=== PATIENT | female | born 1970 | race African-American/Black ===

== ENCOUNTER 2018-12-13 18:26 | Emergency (ER) | payer SELFPAY ==
[~2018-12-13] VITALS: Ht 165.1 cm; Wt 86.0 kg
[~2018-12-13 18:26] MED LIST: CYCL5TAB PO; HCTZ
[2018-12-13] MEDS ORDERED: DIPHENHYDRAMINE 25MG CAPSULE PO ONE (19:15)
[2018-12-13] MEDS ORDERED: FAMOTIDINE 20MG TABLET PO ONE (19:15)
[2018-12-13 19:33] VITALS: BP 148/82
== END 2018-12-13 20:40 | disposition home or self-care (01) ==
LOC: ER 18:26
DX: T78.40XA Allergy, unspecified, initial encounter (principal); I10 Essential (primary) hypertension; J45.909 Unspecified asthma, uncomplicated; Z91.013 Allergy to seafood; X58.XXXA Exposure to other specified factors, initial encounter
CPT/HCPCS: 99283; Q0163

== ENCOUNTER 2019-05-12 10:41 | Emergency (ER) | payer MEDICAID ==
[~2019-05-12] VITALS: Ht 160 cm; Wt 78.0 kg
[2019-05-12] MEDS ORDERED: FAMOTIDINE 20MG/2ML VIAL IV ONE (11:00)
[2019-05-12] MEDS ORDERED: DIPHENHYDRAMINE 50MG/ML VIAL IV ONE (11:00)
[2019-05-12] MEDS ORDERED: METHYLPREDNISOLONE SOD SUCC 125 MG/2 ML VIAL IV ONE (11:00)
[2019-05-12 13:32] VITALS: BP 132/85
== END 2019-05-12 13:44 | disposition home or self-care (01) ==
LOC: ER 10:41
DX: T78.40XA Allergy, unspecified, initial encounter (principal); I10 Essential (primary) hypertension; J45.909 Unspecified asthma, uncomplicated; F17.200 Nicotine dependence, unspecified, uncomplicated; Z91.013 Allergy to seafood; Z79.899 Other long term (current) drug therapy; X58.XXXA Exposure to other specified factors, initial encounter
CPT/HCPCS: 96374; 96375; 99283; J1200; J2930; J3490

== ENCOUNTER → 2019-08-25 | Emergency (ER) | payer BC, MEDICAID ==
[~2019-08-25] VITALS: Ht 160 cm; Wt 75.0 kg
[~2019-08-25] MED LIST changes: +DIPHENHYDRAMINE 50MG CAPSULE PO ONE; +DIPHENHYDRAMINE 50MG/ML VIAL IV ONE; +FAMOTIDINE 20MG TABLET PO ONE; +METHYLPREDNISOLONE SOD SUCC 125 MG/2 ML VIAL IV ONE; +PREDNISONE 20MG TABLET PO ONE
[2019-08-25 03:49] VITALS: BP 131/82
== END ==
LOC: ER 02:23
DX: T78.3XXA Angioneurotic edema, initial encounter (principal); I10 Essential (primary) hypertension; J45.909 Unspecified asthma, uncomplicated
CPT/HCPCS: 96374; 96375; 99284; J1200; J2930